=== PATIENT | female | born 1945 | race Caucasian/White ===

== ENCOUNTER 2016-06-18 09:48 | Outpatient (CLI) | payer MEDICARE ==
[~2016-06-18] VITALS: Ht 157.5 cm; Wt 100.7 kg
--- OUTSIDE RECORDS SUMMARY | 2016-06-18 09:52 | XMS REPORT ---
Author Author Kt Roth [facility] Address [address] [place], [place] [id number] Care Team Providers Care Computer Forensic Specialist Name Role Phone Kt Roth PCP Unavailable pharmacy, Meds by Mail Unavailable Unavailable Kt Roth PreferredProvider Unavailable Allergies and Adverse Reactions Name Reaction Notes Lortab heart races Plan of Treatment Not available. Medications Active Name Start Date Estimated Completion Date SIG Comments primidone 250 mg oral tablet take 1 tablet (250 mg) by oral route 3 times per day for maintenance omeprazole 20 mg oral capsule,delayed release(DR/EC) take 1 capsule (20 mg) by oral route once daily before a meal aspirin 81 mg oral tablet,delayed release (DR/EC) take 1 tablet (81 mg) by oral route once daily Advair HFA 500 /50 inhalation take 1 puff bid thiothixene 2 mg oral capsule takes 1 cap bid bupropion HCl 150 mg oral tablet extended release take 1 tablet (150 mg ) by oral route once daily topiramate 50 mg oral tablet take 1 tablet (50 mg) by oral route 2 times per day Farxiga 10 mg oral tablet 09/12/2015 09/06/2016 take 1 tablet by oral route daily for 90 days Levi-fine plus 32G needle 09/12/2015 09/06/2016 use daily. ICD-10 E11.9 cyclobenzaprine 10 mg oral tablet 09/28/2015 take 1 tablet (10 mg) by oral route 2 times per day prn Lantus Solostar 100 unit/mL (3 mL) subcutaneous insulin pen 10/01/20152016 inject 80 units at bedtime for 90 day supply ipratropium bromide 0.02 % inhalation solution 10/09/2015 inhale one vial every 4hr prn for wheezing Proventil HFA 90 mcg/actuation inhalation HFA aerosol inhaler 12/25/2015 2 puffs every 4 hours as needed Humulin 70/30 100 unit/mL (70-30) subcutaneous suspension 12/25/2015 injects 40 units in the AM Victoza 3-Jamal 0.6 mg/0.1 mL (18 mg/3 mL) subcutaneous pen injector 04/11/2016 07/05/2017 inject 1.8 mg by subcutaneous route once daily for 90 days alprazolam 0.5 mg oral tablet 05/28/2016 09/25/2016 take 1 tablet by oral route 3 times a day as needed for 30 days Norvasc 5 mg oral tablet 06/02/2016 07/02/2016 take 1 tablet (5 mg) by oral route once daily for 30 days MS Contin 15 mg oral tablet extended release 06/06/2016 07/06/2016 take 1 tablet (15 mg) by oral route every 12 hours for 30 days methylphenidate 5 mg oral tablet 06/06/2016 07/06/2016 take 1 tablet (5 mg) by oral route 2 times per day for 30 days Name Start Date Expiration Date SIG Comments prednisone 20 mg oral tablet 05/13/2016 05/20/2016 take 1 tablet by oral route daily for 7 days Discontinued Name Start Date Discontinued Date SIG Comments atorvastatin 40 mg oral tablet 06/02/2016 take 1 tablet (40 mg) by oral route once daily Tylenol-Codeine #3 300-30 mg oral tablet 09/06/2015 06/02/2016 take 1 - 2 tablets by oral route every 6 hours as needed Samara Nolasco 300 unit/mL (1.5 mL) subcutaneous insulin pen 09/12/20152015 80 units daily for 90 days oxycodone 15 mg oral tablet 05/27/2016 06/02/2016 take 1 tablet by oral route every 4 hours as needed Problem List Not available. Vital Signs Date Time BP-Sys(mm[Hg] BP-Jayna(mm[Hg]) HR(bpm) RR(rpm) Temp WT HT HC BMI BSA BMI Percentile O2 Sat(%) 06/02/2016 11:03:00 AM 108 mmHg 66 mmHg 96 bpm 18 rpm 96.6 F 63 in 92 % 05/13/2016 9:13:00 AM 140 mmHg 84 mmHg 94 bpm 18 rpm 96.7 F 235 lbs 63 in 41.628 kg/m 2.1767 m 94 % 03/12/2016 10:33:00 AM 110 mmHg 72 mmHg 92 bpm 16 rpm 97.6 F 235 lbs 63 in 41.63 kg/m2 2.18 m2 97 % 01/31/2016 10:40:00 AM 120 mmHg 82 mmHg 95 bpm 18 rpm 97.2 F 238 lbs 63 in 42.1594 kg/m 2.1906 m 98 % 11/27/2015 1:32:00 PM 132 mmHg 80 mmHg 94 bpm 16 rpm 96 F 230 lbs 63 in 40.74 kg/m2 2.15 m2 97 % 09/06/2015 8:33:00 AM 132 mmHg 76 mmHg 97 bpm 20 rpm 97 F 227 lbs 63 in 40.2108 kg/m 2.1394 m 96 % 08/21/2015 9:09:00 AM 136 mmHg 84 mmHg 97 bpm 19 rpm 96.9 F 230 lbs 63 in 40.74 kg/m2 2.15 m2 98 % 08/13/2015 3:13:00 PM 132 mmHg 80 mmHg 92 bpm 16 rpm 97 F 232 lbs 63 in 41.0965 kg/m 2.1628 m 98 % Social History Name Description Comments Tobacco Current every day smoker History of Procedures Date Ordered Description Order Status 08/13/2015 12:00 AM COMPLETE CBC W/AUTO DIFF WBC Reviewed 08/13/2015 12:00 AM COMPREHEN METABOLIC PANEL Reviewed 08/13/2015 12:00 AM GLYCOSYLATED HEMOGLOBIN TEST Reviewed 09/06/2015 12:00 AM X-RAY EXAM OF SHOULDER Reviewed 11/27/2015 12:00 AM COMPLETE CBC W/AUTO DIFF WBC Returned 11/27/2015 12:00 AM COMPREHEN METABOLIC PANEL Returned 11/27/2015 12:00 AM GLYCOSYLATED HEMOGLOBIN TEST Returned 03/12/2016 12:00 AM COMPLETE CBC W/AUTO DIFF WBC Returned 03/12/2016 12:00 AM COMPREHEN METABOLIC PANEL Returned 03/12/2016 12:00 AM GLYCOSYLATED HEMOGLOBIN TEST Returned 03/12/2016 12:00 AM INFLUENZA VACCINE QUADRIVALENT 3 YRS PLUS IM Reviewed Results Summary Data and Description Results 08/13/2015 4:00 PM GLUCOSE 171.0 mg/dLSODIUM 142.0 mmol/LPOTASSIUM 3.90 mmol/ LCHLORIDE 107.0 mmol/LCO2 24.0 mmol/LBUN 7.0 mg/dLCREATININE 0.70 mg/dLSGOT/AST 36.0 IU/LSGPT/ALT 45.0 IU/LALK PHOS 111.0 IU/LTOTAL PROTEIN 7.30 g/dLALBUMIN 4.10 g/dLTOTAL BILI 0.30 mg/dLCALCIUM 9.10 mg/dLAGE 70 GFR NonAA 83 GFR AA 101 eGFR >60 mL/min/1.73meGFR AA* >60 WBC 8.3 RBC 4.78 HGB 14.10 g/dLHCT 41.60 % MCV 87.0 fLMCH 29.50 pgMCHC 33.90 g/dLRDW SD 41 RDW CV 12.90 %MPV 10.40 fLPLT 169 NRBC# 0.00 NRBC% 0.0 %NEUT 52.40 %%LYMP 38.70 %%MONO 6.60 %%EOS 2.0 %%BASO 0.20 %#NEUT 4.36 #LYMP 3.23 #MONO 0.55 #EOS 0.17 #BASO 0.02 MANUAL DIFF NOT IND Hemoglobin A1c 9.50 %Estim. Avg Glu (eAG) 226 11/27/2015 1:52 PM WBC 10.7 RBC 5.12 HGB 15.0 g/dLHCT 44.70 %MCV 87.0 fLMCH 29.30 pgMCHC 33.60 g/dLRDW SD 42 RDW CV 13.20 %MPV 9.80 fLPLT 194 NRBC# 0.00 NRBC% 0.0 %NEUT 52.0 %%LYMP 37.80 %%MONO 7.0 %%EOS 2.60 %%BASO 0.30 %#NEUT 5.58 #LYMP 4.05 #MONO 0.75 #EOS 0.28 #BASO 0.03 MANUAL DIFF NOT IND HGB A1C 6.70 % Est Avg Glucose 145.6 mg/dLGLUCOSE 71.0 mg/dLSODIUM 140.0 mmol/LPOTASSIUM 4.50 mmol/LCHLORIDE 105.0 mmol/LCO2 25.0 mmol/LBUN 15.0 mg/dLCREATININE 0.80 mg/ dLSGOT/AST 37.0 IU/LSGPT/ALT 44.0 IU/LALK PHOS 123.0 IU/LTOTAL PROTEIN 8.20 g/ dLALBUMIN 4.10 g/dLTOTAL BILI 0.30 mg/dLCALCIUM 9.80 mg/dLAGE 70 GFR NonAA 71 GFR AA 86 eGFR >60 mL/min/1.73meGFR AA* >60 03/12/2016 11:36 AM WBC 8.9 RBC 5.08 HGB 14.80 g/dLHCT 44.40 %MCV 87.0 fLMCH 29.10 pgMCHC 33.30 g/dLRDW SD 43 RDW CV 13.30 %MPV 9.90 fLPLT 168 NRBC# 0.00 NRBC% 0.0 %NEUT 51.90 %%LYMP 38.40 %%MONO 6.70 %%EOS 2.50 %%BASO 0.20 %#NEUT 4.61 #LYMP 3.41 #MONO 0.60 #EOS 0.22 #BASO 0.02 MANUAL DIFF NOT IND HGB A1C 7.40 %Est Avg Glucose 165.7 mg/dLGLUCOSE 157.0 mg/dLSODIUM 141.0 mmol/ LPOTASSIUM 4.0 mmol/LCHLORIDE 108.0 mmol/LCO2 25.0 mmol/LBUN 12.0 mg/ dLCREATININE 0.90 mg/dLSGOT/AST 42.0 IU/LSGPT/ALT 48.0 IU/LALK PHOS 123.0 IU/ LTOTAL PROTEIN 7.20 g/dLALBUMIN 4.10 g/dLTOTAL BILI 0.30 mg/dLCALCIUM 9.60 mg/ dLAGE 70 GFR NonAA 62 GFR AA 75 eGFR >60 mL/min/1.73meGFR AA* >60 04/08/2016 6:33 AM GLUCOSE POCT 179.0 mg/dL 06/04/2016 11:00 PM COLOR YELLOW APPEARANCE HAZY SPEC GRAV 1.020 pH 5.5 PROTEIN NEGATIVE GLUCOSE >=1000 mg/dLKETONE NEGATIVE BILIRUBIN NEGATIVE BLOOD TRACE-INTACT NITRITE POSITIVE LEUK SCREEN SMALL MICRO INDICATED? SEE BELOW WBC/ HPF 20-50 RBC/HPF 0-5 CASTS/LPF NEGATIVE /LPFCRYSTALS NEGATIVE MUCOUS THRDS NEGATIVE BACTERIA 2++ EPITH CELLS FEW SQUAMOUS /HPFTRICHOMONAS NEGATIVE YEAST NEGATIVE CULT SET UP? YES History Of Immunizations Name Date Admin Mfg Name Mfg Code Trade Name Lot# Route Inj Vis Given Vis Pub CVX Influenza 03/12/2016 sanofi pasteur PMC Fluzone High-Dose [id number] Intramuscular Left Deltoid 03/12/2016 12/29/2014 141 History of Past Illness Name Date of Onset Comments Chronic Obstructive Pulmonary Disease Tremor, essential Hypertension Insomnia, unspecified Bipolar disorder, unspecified Hyperlipidemia CVA (cerebral vascular accident) Hypertension Aug 13 2015 3:33PM Diabetes Mellitus, Type II Aug 13 2015 3:33PM Chronic Obstructive Pulmonary Disease Aug 13 2015 3:33PM Hypertension Aug 21 2015 9:11AM Diabetes Mellitus, Type II, Uncontrolled Aug 21 2015 9:11AM Subacromial bursitis, right Aug 21 2015 9:31AM Shoulder joint pain Sep 06 2015 8:39AM Diabetes Mellitus, Type II, Uncontrolled Sep 06 2015 8:39AM Diabetes Mellitus, Type II Nov 27 2015 1:35PM Shoulder tendonitis, right Jan 31 2016 10:46AM Anxiety Jan 31 2016 10:46AM Diabetes Mellitus, Type II Mar 12 2016 10:39AM Chronic right shoulder pain Mar 12 2016 10:39AM Skin tags, multiple acquired Mar 12 2016 10:39AM Hypertension Mar 12 2016 10:39AM Pain of right hip joint May 13 2016 9:22AM Severe pain May 13 2016 9:22AM Hypertension Jun 02 2016 11:10AM Spinal stenosis of lumbar region Jun 02 2016 11:10AM Payers Insurance Name Company Name Plan Name Plan Number Policy Number Policy Group Number Start Date Medicare RHC Medicare RHC [id number] N/A [facility] [id number] N/A Medicare Part A Medicare - Lab/Xray [id number] N/A Medicare Part B Medicare Of [place] [id number] N/A Medicare Part A Medicare Part A [id number] N/A History of Encounters Visit Date Visit Type Provider 06/02/2016 Office visit Kt Roth MD 05/13/2016 Office visit Kt Roth MD 04/01/2016 Voided Jon Landin MD 03/12/2016 Office visit Kt Roth MD 01/31/2016 Office visit Kt Roth MD 11/27/2015 Office visit Kt Roth MD 09/06/2015 Office visit Kt Roth MD 08/21/2015 Office visit Kt Roth MD 08/13/2015 Office visit Kt Roth MD
[2016-06-18] MEDS ORDERED: INSU100I10 SQ (11:20)
[2016-06-18] MEDS ORDERED: AMLO5TAB2 PO (11:20)
[2016-06-18] MEDS ORDERED: LIRA0.6P SQ (11:20)
[2016-06-18] MEDS ORDERED: MORP30TA60 PO (11:20)
[2016-06-18] MEDS ORDERED: HUM100VI SQ (11:20)
[2016-06-18] MEDS ORDERED: IBUP-1780 PO (12:13)
[2016-06-18] MEDS ORDERED: DOCU100C37 PO (12:13)
[2016-06-18] MEDS ORDERED: BISA10SU6 RC (12:27)
[2016-06-18] MEDS ORDERED: PRIM250T PO (12:27)
[2016-06-18] MEDS ORDERED: ASPI-586 PO (12:27)
[2016-06-18] MEDS ORDERED: NALO25TA PO (12:27)
[2016-06-18] MEDS ORDERED: CLOT30LO2 TP (12:27)
[2016-06-18] MEDS ORDERED: AMOX-358 PO (12:27)
[2016-06-18] MEDS ORDERED: MAGN400O7 PO (12:27)
[2016-06-18] MEDS ORDERED: LIDO700A6 TP (12:27)
[2016-06-18] MEDS ORDERED: ALB0.5V IH (12:27)
[2016-06-18] MEDS ORDERED: RT-ALBUINH IH (12:27)
[2016-06-18] MEDS ORDERED: OMEP20CA12 PO (12:27)
[2016-06-18] MEDS ORDERED: AMIT25TA9 PO (12:27)
[2016-06-18] MEDS ORDERED: MORP15TA PO (12:27)
[2016-06-18] MEDS ORDERED: TOPI50CA5 PO (12:27)
[2016-06-18] MEDS ORDERED: CYCL10TA9 PO (12:27)
[2016-06-18] MEDS ORDERED: BETH25TA PO (12:27)
[2016-06-18] MEDS ORDERED: BENZ1TAB6 PO (12:27)
[2016-06-18] MEDS ORDERED: BUPR150T7 PO (12:27)
[2016-06-18] MEDS ORDERED: ONDA4TAB10 PO (12:27)
[2016-06-18] MEDS ORDERED: DAPA10TA PO (12:27)
[2016-06-18] MEDS ORDERED: THIO2CAP2 PO (12:27)
[2016-06-18] MEDS ORDERED: ALPR0.5T7 PO (12:27)
[2016-06-18] MEDS ORDERED: METH5TAB86 PO (12:27)
== END 2016-06-18 12:46 ==
LOC: PREOP 09:48
PROVIDERS: ATTEND Orthopaedic Surgery
DX: Z01.818 Encounter for other preprocedural examination (principal); G83.4 Cauda equina syndrome

== ENCOUNTER 2016-06-23 06:09 | Inpatient (IN) | payer MEDICARE, OTHER ==
[~2016-06-23] VITALS: Ht 157.5 cm; Wt 100.7 kg
[~2016-06-23 06:09] MED LIST: ALB0.5V IH; ALPR0.5T7 PO; AMIT25TA9 PO; AMLO5TAB2 PO; AMOX-358 PO; ASPI-586 PO; BENZ1TAB6 PO; BETH25TA PO; BISA10SU6 RC; BUPR150T7 PO; CLOT30LO2 TP; CYCL10TA9 PO; DAPA10TA PO; DOCU100C37 PO; HUM100VI SQ; IBUP-1780 PO; INSU100I10 SQ; LIDO700A6 TP; LIRA0.6P SQ; MAGN400O7 PO; METH5TAB86 PO; MORP15TA PO; MORP30TA60 PO; NALO25TA PO; OMEP20CA12 PO; ONDA4TAB10 PO; PRIM250T PO; RT-ALBUINH IH; THIO2CAP2 PO; TOPI50CA5 PO
[2016-06-23] MEDS ORDERED: DEXMEDETOMIDINE PRE-MIX (OR) 50 ML IV ONE (06:56)
[2016-06-23] MEDS ORDERED: VANCOMYCIN 1000 MG/VIAL ONE (06:58)
[2016-06-23] MEDS ORDERED: BUP/EPI 0.5% 1:200,000 (SENSORCAINE) 30 ML VIAL ONE (07:00)
[2016-06-23] MEDS ORDERED: ceFAZolin 2 GM/NS 50 ML IV ONE (07:00)
[2016-06-23] MEDS ORDERED: MIDAZOLAM 2 MG/2 ML (VERSED) VIAL ONE (07:01)
[2016-06-23] MEDS ORDERED: FAMOTIDINE 20MG/2ML IV (PEPCID) ONE (07:02)
[2016-06-23] MEDS ORDERED: proPOfol 200 MG/20 ML (DIPRIVAN) VIAL IV ONE (07:07)
[2016-06-23] MEDS ORDERED: ONDANSETRON 4 MG/2 ML (SDV) Z0FRAN ONE (07:07)
[2016-06-23] MEDS ORDERED: SUCCINYLCHOLINE INJ 100 MG/5 ML SYR ONE (07:07)
[2016-06-23] MEDS ORDERED: LIDOCAINE PF 2% 10 ML (XYLOCAINE) AMP ONE (07:07)
[2016-06-23] MEDS ORDERED: LACTATED RINGERS 1,000 ML IV ONE ×4 (07:07→10:52)
[2016-06-23] MEDS ORDERED: SEVOFLURANE (ULTANE) 15 ML INHAL SOLN ONE ×8 (07:07→10:52)
[2016-06-23] MEDS ORDERED: fentaNYL INJECTION 100 MCG/2 ML AMP ONE ×3 (07:09→09:06)
[2016-06-23] MEDS: LACTATED RINGERS 1,000 ML IV PRN ×4 (07:11→10:10)
[2016-06-23] MEDS ORDERED: ACETAMINOPHEN 325 MG TABLET/CAPLET (TYLENOL) PO PRN (07:15)
[2016-06-23] MEDS ORDERED: morphine INJ 4 MG/ML 1 ML (VIAL/SYRINGE) IVP PRN (07:15)
[2016-06-23] MEDS ORDERED: BISACODYL 10 MG SUPP (DULCOLAX) PR PRN (07:15)
[2016-06-23] MEDS ORDERED: ONDANSETRON 4 MG/2 ML (SDV) Z0FRAN IV PRN ×2 (07:15→11:00)
[2016-06-23] MEDS ORDERED: BISACODYL 5 MG (DULCOLAX) TABLET PO PRN (07:15)
[2016-06-23] MEDS ORDERED: MIDAZOLAM 2 MG/2 ML (VERSED) VIAL IV ONE (07:15)
[2016-06-23] MEDS ORDERED: MILK OF MAGNESIA 400 MG/5 ML 30 ML UDC PO PRN (07:15)
[2016-06-23] MEDS ORDERED: FAMOTIDINE 20MG/2ML IV (PEPCID) IV ONE (07:15)
--- NOTE | 2016-06-23 07:31 | Progress Note-Pre Operative ---
Pre-Operative Progress Note H&P Reviewed The H&P was reviewed, patient examined and no changes noted. Date H&P Reviewed: Jun 23, 2016 Time H&P Reviewed: 07:30 Pre-Operative Diagnosis: fracture and stenosis KATINA RICO DO Jun 23, 2016 07:31
[2016-06-23 07:42] VITALS: BP 130/69
[2016-06-23] MEDS ORDERED: BACITRACIN 100,000 UNIT/NS 1000 ML POUR BOTTLE IR ONE ×2 (08:00)
[2016-06-23] MEDS: FAMOTIDINE 20 MG (PEPCID) TABLET PO SCH ×2 (09:00→20:31)
[2016-06-23] MEDS: DOCUSATE SODIUM 100 MG (COLACE) CAP PO SCH ×2 (09:00→20:31)
[2016-06-23] MEDS: SENNOSIDES 8.6 MG (SENOKOT) TAB PO SCH ×2 (09:00→20:31)
--- NOTE | 2016-06-23 10:36 | Diagnostic Imaging Report ---
INDICATION: Followup low back pain. DISCUSSION: Fluoroscopic support was provided during intraoperative posterior decompression and stabilization of the lumbar spine. Please see the operative report for full detail. Fluoroscopy time: 50 seconds. IMPRESSION: Intraoperative lumbar spine. Dictated by: Dictated on workstation # [id number]
[2016-06-23] MEDS ORDERED: HYDROmorphone (DILAUDID) 2 MG/ML VIAL IV PRN (11:00)
[2016-06-23] MEDS ORDERED: morphine INJ 10 MG/ML 1ML (SYR OR VIAL) IV PRN (11:00)
[2016-06-23] MEDS ORDERED: MEPERIDINE (DEMEROL) INJ 50 MG/ML IV PRN (11:00)
[2016-06-23] MEDS ORDERED: PROMETHAZINE INJ 25 MG/ML (PHENERGAN) AMP IV PRN (11:00)
--- NOTE | 2016-06-23 11:55 | OPERATIVE REPORT ---
PROCEDURE PHYSICIAN: KATINA RICO DATE OF PROCEDURE: 06/23/2016 SURGEON: Dr. Dom D.O. AUGER OPERATOR: HARRIET Middleton. This is a medically necessary procedure and bindery assistant is necessary for retraction of vital neurovascular structures. Without an bindery assistant, the procedure would not be possible. PREOPERATIVE DIAGNOSIS: 1. Cauda equina syndrome. 2. Lumbar spinal stenosis (central, connective tissue, bony) POSTOPERATIVE DIAGNOSIS: 1. Cauda equina syndrome. 2. Lumbar spinal stenosis (central, connective tissue, bony) PROCEDURE PERFORMED: 1. L3-4 kyphoplasty. 2. L3-4 bilateral laminectomies complete facetectomies and foraminotomies. 3. Transforaminal lumbar interbody fusion L3-4. 4. Application of peek cage L3-4. 5. Posterior spinal fusion L3-4. 6. Application of posterior instrumentation L3-4. 7. Use of human allograft and bone morphogenic protein. 8. Use of local bone autograft. COMPLICATIONS: None. SPECIMENS SENT: None. DRAIN PLACED: Subfascial Hemovac. ANESTHESIA: General endotracheal tube anesthesia with local anesthetic. ESTIMATED BLOOD LOSS: 1400 mL. HISTORY OF PRESENT ILLNESS: Ms. Segura is a very pleasant, obese 71-year-old female who up to 5 weeks ago was fully ambulatory. She was able to walk around town and perform activities of daily living. She did have a fall and a week after that fall had rapid decline in her neurologic functions. She was unable to stand and walk due to significant bilateral lower extremity weakness, saddle anesthesia and she had a neurogenic bladder with urinary incontinence. She presented to me in the clinic for evaluation for this problem. Diagnosis: cauda equinus syndrome after MRI demonstrated severe L3-4 spinal stenosis above a fused L4-5, L5-S1. She understood the risks and benefits of surgery, as well as the necessity to prevent further neurologic decline, and she did wish to proceed. OPERATION: The patient was identified by name on wrist band in the preoperative holding area. Her operative site was signed, consent was signed. SCDs were placed. Neural monitor was hooked up and antibiotics were started. She was taken to the operating room theater, placed under general endotracheal tube anesthesia and transferred to the operating room table in the prone position. All bony prominences were well padded. She was prepped and draped in the usual sterile fashion. Lateral x-ray was brought into place. I marked out the extent of my incision, infiltrated the skin and soft tissue with 0.5% Marcaine with epinephrine. I made a midline lumbar incision over the old scar and just proximal to it. I proceeded with a bilateral subperiosteal paraspinal muscular approach exposing the posterior elements at L3-4. At this point, I performed a bilateral laminectomy at L3-4. I utilized Leksell rongeurs, high speed bur and Kerrison rongeurs to do this. I performed a complete facetectomies completely removing the L3-4 facet joint. I identified the exiting nerve root. When I was finished, the nerves were thoroughly decompressed. At this point, I retracted the thecal sac medially, identified a large broad based disc bulge. I did an annulotomy and I did a complete discectomy of the entire L3-4 disc space. I then sized and chose the appropriate new NuVasive titanium interbody cage packed with human allograft and I seated it in the midline position. At this point, I made all my screw holes at L3 and L4. I mixed up Kyphon kyphoplasty cement and I performed an L3 kyphoplasty through those pedicle holes that were prepared. After the cement was in place I placed screws bilaterally in L3 and then I placed screws in L4 bilaterally. I asked EMG neural monitoring to assess the presence of my screws and they were in safe position. I also looked at them under AP and lateral x-ray the screws were in good position. At this point, I removed the x-ray. I placed a rai on the left and rai on the right, I placed set screws, I final tightened those set screws. I then thoroughly irrigated the wound with 2 liters of antibiotic enhanced irrigation and decorticated the remaining posterior bony elements. I placed bone morphogenic protein-soaked collagen strips in the left and the right posterolateral gutters to promote posterior spinal fusion. I also packed human allograft and local bone autograft and human stem cells in those lateral gutters to promote posterior spinal fusion. At this point, I placed a deep subfascial Hemovac drain, I sewed into place and I closed the wound in my usual layered fashion utilizing 0 Vicryl, followed by 2-0 Vicryl, followed by 1 gram of vancomycin powder caressed through the soft tissues and I closed the skin with nathan. I applied dressings and took the patient in the supine position to PACU where she awoke without incident. She tolerated the procedure well. PLAN: The plan at this time - we will admit the patient for IV antibiotics, IV pain control and postop, monitoring. Discontinue her drain and Wyman per my protocol. We will assess her hemoglobin on a daily basis and transfuse should she need it. She does have a brace to wear when she is out of bed. Please note neural monitoring utilized SSEPs, EMGs train of fours. This was stable throughout the procedure also note instrumentation utilized was NuVasive for everything. Job ID: [id number] Dictated Date: 06/23/2016 10:25:32 Renal Dialysis Rn Date: 06/23/2016 11:27:22 / helen
[2016-06-23 12:00] VITALS: BP 136/62
[2016-06-23] MEDS ORDERED: diphenhydrAMINE 25 MG TAB (BENADRYL) PO PRN (12:00)
[2016-06-23] MEDS: oxyCODONE/APAP 5/325MG (PERCOCET 5) TABLET PO PRN ×2 (13:27→22:59)
[2016-06-23] MEDS: NS IV 1000 ML 1,000 ML IV SCH (13:27)
[2016-06-23] MEDS: ceFAZolin INJECTION 1,000 MG in NS (IVPB) 50 ML IV SCH ×2 (13:32→19:47)
[2016-06-23] MEDS ORDERED: CATHETER FLUSH 10 ML SYR IV PRN (14:45)
[2016-06-23] MEDS ORDERED: NA P133E22 RC (16:22)
[2016-06-23 16:32] VITALS: BP 130/76
[2016-06-23 19:08] VITALS: BP 140/79
[2016-06-23] MEDS: CYCLOBENZAPRINE 10 MG (FLEXERIL) TAB PO PRN (20:32)
[2016-06-24] VITALS: BP 152/90
[2016-06-24] MEDS: NS IV 1000 ML 1,000 ML IV SCH (03:01)
[2016-06-24] MEDS: ceFAZolin INJECTION 1,000 MG in NS (IVPB) 50 ML IV SCH (03:05)
[2016-06-24 04:00] VITALS: BP 153/86
[2016-06-24 05:44] LABS: ALANINE AMINOTRANSFERASE 18 U/L (0-55); ALBUMIN 2.8 G/DL (3.2-4.5); ANION GAP 10 MMOL/L (5-14); ASPARTATE AMINO TRANSFERASE 19 U/L (5-34); BILIRUBIN,TOTAL 0.4 MG/DL (0.1-1.0); BLOOD UREA NITROGEN 8 MG/DL (7-18); BUN/CREATININE RATIO 14; CALCIUM 8.1 MG/DL (8.5-10.1); CARBON DIOXIDE 23 MMOL/L (21-32); CHLORIDE 107 MMOL/L (98-107); CREATININE SERUM 0.57 MG/DL (0.60-1.30); GFR ESTIMATED > 60; GLUCOSE 160 MG/DL (70-105); POTASSIUM 3.4 MMOL/L (3.6-5.0); SODIUM 140 MMOL/L (135-145); TOTAL PROTEIN 5.7 G/DL (6.4-8.2)
[2016-06-24] MEDS: MULTIVIT W/MINERALS TAB (THERAGRAN M) PO SCH (06:10)
[2016-06-24] MEDS: oxyCODONE/APAP 5/325MG (PERCOCET 5) TABLET PO PRN ×4 (06:11→21:44)
[2016-06-24] MEDS ORDERED: RT-ALBUTEROL SULF 2.5 MG/3 ML PRE-MIX VIAL INH PRN (07:15)
[2016-06-24 07:56] LABS: BASOPHILS % (AUTO) 0 % (0-10); EOSINOPHILS # (AUTO) 0.1 10^3/uL (0.0-0.3); EOSINOPHILS % (AUTO) 1 % (0-10); LYMPHOCYTES # (AUTO) 2.2 X 10^3 (1.0-4.0); LYMPHOCYTES % (AUTO) 21 % (12-44); MEAN CORPUSCULAR HEMOGLOBIN 30 PG (25-34); MEAN CORPUSCULAR HGB CONC 33 G/DL (32-36); MEAN CORPUSCULAR VOLUME 91 FL (80-99); MONOCYTES % (AUTO) 9 % (0-12); NEUTROPHILS # (AUTO) 7.2 X 10^3 (1.8-7.8); NEUTROPHILS % (AUTO) 69 % (42-75); PLATELET COUNT 264 10^3/uL (130-400); RED BLOOD COUNT 3.55 10^6/uL (4.35-5.85); RED CELL DISTRIBUTION WIDTH 13.7 % (10.0-14.5); WHITE BLOOD COUNT 10.5 10^3/uL (4.3-11.0)
[2016-06-24 08:00] VITALS: BP 162/88
[2016-06-24] MEDS: morphine ER 30 MG (MS CONTIN) TAB PO SCH ×2 (08:00→19:00)
[2016-06-24] MEDS: ALPRAZolam 0.5 MG (XANAX) TAB PO SCH ×3 (08:46→20:17)
[2016-06-24] MEDS: SENNOSIDES 8.6 MG (SENOKOT) TAB PO SCH ×2 (09:50→20:17)
[2016-06-24] MEDS: buPROPion SR 150 MG (WELLBUTRIN SR) TAB PO SCH ×2 (10:01→20:17)
[2016-06-24] MEDS: BENZTROPINE MESYLATE 1 MG (COGENTIN) TAB PO SCH (10:02)
[2016-06-24] MEDS: BETHANECHOL 25 MG (URECHOLINE) TAB PO SCH ×3 (10:02→18:39)
[2016-06-24] MEDS: CYCLOBENZAPRINE 10 MG (FLEXERIL) TAB PO SCH ×2 (10:03→20:17)
[2016-06-24] MEDS: FAMOTIDINE 20 MG (PEPCID) TABLET PO SCH ×2 (10:03→20:17)
[2016-06-24] MEDS: DOCUSATE SODIUM 100 MG (COLACE) CAP PO SCH ×2 (10:03→20:17)
[2016-06-24] MEDS: amLODIPine 5 MG (NORVASC) TAB PO SCH (10:03)
[2016-06-24] MEDS: inSUlin NPH/REG (NovoLIN 70/30) CHARGE PER UNIT SQ SCH (10:04)
--- NOTE | 2016-06-24 10:24 | Physical Therapy Progress Note ---
Therapy Progress Note Patient is very emotional/tearful and declined PT x 2 this a.m. PT educated patient on importance of mobility to improve strength and to prevent DVT's and pneumonia. Patient continues to be emotional and decline. PT will continue to attempt. 1 ref x 2 JAE SILVA PT Jun 24, 2016 10:23
[2016-06-24 12:00] VITALS: BP 131/80
--- NOTE | 2016-06-24 12:41 | Anesthesia-General Post-Op ---
General Patient Condition Mental Status/LOC: Same as Preop Cardiovascular: Satisfactory Nausea/Vomiting: Absent Respiratory: Satisfactory Pain: Controlled Complications: Absent Post Op Complications Complications None Follow Up Care/Instructions Patient Instructions None needed. Anesthesia/Patient Condition Patient Condition Patient is doing well, no complaints, stable vital signs, no apparent adverse anesthesia problems. No complications reported per nursing. TOMMIE EWING CRNA Jun 24, 2016 12:41
--- NOTE | 2016-06-24 13:08 | Physical Therapy Evaluation ---
PT Evaluation-General Medical Diagnosis Admission Date Jun 23, 2016 at 06:09 Medical Diagnosis: lumbar spinal stenosis Onset Date: Jun 23, 2016 Therapy Diagnosis Therapy Diagnosis: debility/weakness Height/Weight Height (Feet): 5 Height (Inches): 2.00 Weight (Pounds): 222 Weight (Ounces): 0.0 Precautions Precautions/Isolations: Fall Prevention, Standard Precautions Weight Bear Status Weight Bearing Restriction: Weight Bearing/Tolerated Location Restriction: LE Bilateral Referral Physician: Dom Reason for Referral: Evaluation/Treatment Medical History Pertinent Medical History: COPD, DM Additional Medical History bipolar; morbid obesity Current History ~ 5 wks prior, patient c/o back pain; increasingly became worse resulting in cauda equina syndrome ~2- 4 wks ago, patient fell and fractured right humerus 2 wks after rotator cuff repair Reviewed History: Yes Social History Home: Care Home (shira lift transfers) Prior/Core FIM Prior Level of Function Functional Ritchie Measure 0=Not Assessed/NA 4=Minimal Assistance 1=Total Assistance 5=Supervision or Setup 2=Maximal Assistance 6=Modified Ritchie 3=Moderate Assistance 7=Complete Ritchie Bed Mobility: 1 Transfers (B,C,W/C) (FIM): 1 Patient required Shira Lift for safe transfers due to cauda equina syndrome PT Evaluation-Current Subjective Patient is very tearful and fearful to attempt to stand. Agrees to PT. Pain Numeric Pain Scale: 5-Moderate Pain Location: Lower Location Body Site: Back Pain Description: Ache Objective Patient Orientation: Person, Time, Situation Problem Solving: Fair Attachments: Oxygen, Drains, Wyman Catheter, IV ROM/Strength ROM Lower Extremities bilateral LE WFL Strenght Lower Extremities left LE 2-/5 knee flexion/extension; 1+/5 ankle dorsi/plantarflexion right LE 3-/5 knee flexion/extension; 3-/5 ankle dorsi/plantarflexion Integumentary/Posture Integumentary refer to nursing notes Bladder Incontinence: Wyman Cath Posture retropulsive in sit and stand; posture appears WFL Neuromuscular (Tone, Coordination, Reflexes) severely diminished coordination bilateral LE due to cauda equina and inactivity Sensory Vision: Wears Glasses Hearing: Functional Sensation Right Lower Extremit: Impaired Sensation Left Lower Extremity: Impaired Transfers Functional Ritchie Measure 0=Not Assessed/NA 4=Minimal Assistance 1=Total Assistance 5=Supervision or Setup 2=Maximal Assistance 6=Modified Ritchie 3=Moderate Assistance 7=Complete Ritchie Transfers (B, C, W/C) (FIM): 1 Scootin Rollin Supine to/from Sit: 1 Sit to/from Stand: 1 bed t/f WC(FIM only if WC use): 1 dependent assist x 3 with sit to stand and SPT with patient demonstrating severe retropulsion Gait Mode of Locomotion: Wheelchair Anticipated Mode of Locomotion: Wheelchair Wheelchair Training Wheelchair (FIM): 0 Balance Sitting Static: Poor Sitting Dynamic: Poor Standing Static: Poor Standing Dynamic: Poor Assessment/Needs 71 y.o., female, will benefit from skilled PT to address functional strength and mobility to improve current LOF. From a PT standpoint, patient will require extended care facility stay to improve current LOF and to possibly return to home at modified independent LOF. Rehab Potential: Fair Post Rehab Potential-Barriers: morbid obesity/inactivity PLOF PT Surgeon Chief Goals Mcfp Goals PT Surgeon Chief Goals Time Frame: Jul 08, 2016 Transfers (B,C,W/C) (FIM): 2 PT Plan Problem List Problem List: Activity Tolerance, Functional Strength, Safety, Balance, Gait, Transfer, Bed Mobility Treatment/Plan Treatment Plan: Continue Plan of Care Treatment Plan: Bed Mobility, Education, Functional Activity Michael, Functional Strength, Gait, Safety, Therapeutic Exercise, Transfers Treatment Duration: Jul 08, 2016 # of days/week 5-6 Visits Per Week: 10-11 Pt/Family Agrees w/Plan: Yes Safety Risks/Education Patient Education: Transfer Techniques, Safety Issues Teaching Recipient: Patient Teaching Methods: Demonstration, Discussion Response to Teaching: Verbalize Understanding, Reinforcement Needed Discharge Recommendations Therapy D/C Recommendations: Correction (TCU/NH) Time/GCodes Time In: 1131 Time Out: 1146 Total Billed Treatment Time: 15 [facility] Jun 24, 2016 13:07
--- NOTE | 2016-06-24 14:36 | Diagnostic Imaging Report ---
EXAMINATION: Two views of the lumbar spine. INDICATION: Post laminectomy at L3/4 and kyphoplasty at the L3. FINDINGS: There is anterior and posterior fusion performed at L3/4 with cementoplasty at the L3 vertebral body. The alignment of the posterior spinal line is not well evaluated on the lateral view without obvious alignment de-arrangement. There are small transpedicular screws also seen at the L5 and S1 levels. Posterior drain is seen. IMPRESSION: Limited evaluation demonstrating post-fusion changes and L3 kyphoplasty as described. Dictated by: Dictated on workstation # [id number]
[2016-06-24 16:00] VITALS: BP 155/88
--- NOTE | 2016-06-24 17:04 | Progress Note (SOAP) ---
Subjective Subjective/Events-last exam Elke is POD #1 s/p L3-4 laminectomy and TLIF with PSIF and L3 kyphoplasty. She has no leg pain today and her back pain is mild. Her c/c is anxiety. She takes xanax regularly and hasn't had this since surgery. She denies any other or new issues today. Prior to surgery she was wheelchair bound for several weeks. She has been inactive and has developed LE atrophy and weakness. Review of Systems General: No Chills, No Night Sweats HEENT: No Head Aches, No Visual Changes Pulmonary: No Dyspnea, No Cough Cardiovascular: No: Chest Pain, Palpitations Gastrointestinal: No: Nausea, Vomiting Musculoskeletal: : back pain Neurological: No: Numbness, Weakness Objective Exam Vital Signs Date Time Temp Pulse Resp B/P Pulse Ox O2 Delivery O2 Flow Rate FiO2 06/24/16 12:00 97.1 99 20 131/80 95 Nasal Cannula 3.00 06/24/16 08:00 96.0 100 18 162/88 98 Nasal Cannula 3.00 06/24/16 07:22 3.00 06/24/16 04:00 97.9 104 20 153/86 99 Nasal Cannula 3.00 06/24/16 00:00 97.8 107 20 152/90 94 Nasal Cannula 3.00 06/23/16 20:00 Room Air 06/23/16 19:08 96.1 104 20 140/79 98 Nasal Cannula 3.00 I & O 06/24/16 07:00 Intake Total 4225 ml Output Total 5610 ml Balance -1385 ml Capillary Refill : Less Than 3 Seconds General Appearance: Anxious Neck: Normal Inspection Respiratory: Normal Breath Sounds No Accessory Muscle Use No Respiratory Distress Cardiovascular: Regular Rate, Rhythm Normal Peripheral Pulses Peripheral Pulses: 2+ Dorsalis Pedis (R), 2+ Left Dors-Pedis (L), 2+ Radial Pulses (R), 2+ Radial Pulses (L) Extremity: Normal Capillary Refill Normal Inspection Normal Range of Motion Non Tender No Calf Tenderness Neurologic/Psychiatric: Alert Oriented x3 Other (bilateral LE weakness. While laying in bed patient is able to flex hips 4/5 bilateral illiopsoas, extend leg at knee 4/5 bilateral quad, dorsiflex bialteral feet 3/5 ) Skin: Normal Color Warm/Dry Lymphatic: No Adenopathy Results Lab Laboratory Tests 06/24/16 04:40: Alanine Aminotransferase (ALT/SGPT) 18, Albumin 2.8L, Alkaline Phosphatase 190H , Anion Gap 10, Aspartate Amino Transf (AST/SGOT) 19, BUN/Creatinine Ratio 14, Basophils # (Auto) 0.0, Basophils (%) (Auto) 0, Blood Urea Nitrogen 8, Calcium Level 8.1L, Carbon Dioxide Level 23, Chloride Level 107, Creatinine 0.57L, Eosinophils # (Auto) 0.1, Eosinophils (%) (Auto) 1, Estimat Glomerular Filtration Rate > 60, Glucose Level 160H, Hematocrit 32L, Hemoglobin 10.5L, Lymphocytes # (Auto) 2.2, Lymphocytes (%) (Auto) 21, Mean Corpuscular Hemoglobin 30, Mean Corpuscular Hemoglobin Concent 33, Mean Corpuscular Volume 91, Mean Platelet Volume 11.0H, Monocytes # (Auto) 1.0, Monocytes (%) (Auto) 9, Neutrophils # (Auto) 7.2, Neutrophils (%) (Auto) 69, Platelet Count 264, Potassium Level 3.4L, Red Blood Count 3.55L, Red Cell Distribution Width 13.7, Sodium Level 140, Total Bilirubin 0.4, Total Protein 5.7L, White Blood Count 10.5 06/24/16 07:59: Glucometer 181H Microbiology 06/23/16 MRSA Screen - Final, Complete Assessment/Plan Assessment/Plan Assess & Plan/Chief Complaint Plan: POD #1 s/p lumbar decompression and fusion, kyphoplasty right humerus fracture ABL anemia Diabetes COPD Bipolar disorder hypokalemia Plan: PT Back brace when OOB RUE in sling monitor labs continue drain Calf scd for DVT prophylaxis IS medications reconciled, will try Percocet for analgesia and IV morphine for pain control for now plan will be to dismiss back to LTC facility for conitnued PT, gait training, and LE strengthening Diagnosis/Problems: Clinical Quality Measures DVT/VTE Risk/Contraindication: Risk Factor Score Per Nursin RFS Level Per Nursing on Admit: 4+=Very High RITO CONDE Jun 24, 2016 17:04
[2016-06-24] MEDS ORDERED: NS IV 1000 ML 0 ML ONE (18:32)
[2016-06-24] MEDS: AMITRIPTYLINE 50 MG (ELAVIL) TAB PO SCH (20:17)
[2016-06-24 20:21] VITALS: BP 156/81
[2016-06-25] VITALS: BP 173/86
[2016-06-25 04:00] VITALS: BP 161/82
--- NOTE | 2016-06-25 06:09 | Progress Note (SOAP) ---
Subjective Subjective/Events-last exam MELDIA. Doing well. Seems depressed. Was up and OOB with assist per nurse. She denies new leg pain. Denies N/V/CP/SOB. Drain is in place Objective Exam Vital Signs Date Time Temp Pulse Resp B/P Pulse Ox O2 Delivery O2 Flow Rate FiO2 06/25/16 00:00 98.2 96 20 173/86 96 Nasal Cannula 3.00 06/24/16 20:21 97.7 100 20 156/81 93 Nasal Cannula 3.00 06/24/16 20:00 96 Room Air 06/24/16 16:00 98.5 98 20 155/88 95 Nasal Cannula 3.00 06/24/16 12:00 97.1 99 20 131/80 95 Nasal Cannula 3.00 06/24/16 08:45 95 Nasal Cannula 3.00 06/24/16 08:00 96.0 100 18 162/88 98 Nasal Cannula 3.00 06/24/16 07:22 3.00 I & O 06/25/16 07:00 Intake Total 1030 ml Output Total 2245 ml Balance -1215 ml Capillary Refill : Less Than 3 Seconds General Appearance: No Apparent Distress Extremity: Other (neuro stable, cindy LE general weakness, incision clean and dry, drain in place) Results Lab Laboratory Tests 06/24/16 07:59: Glucometer 181H 06/24/16 21:38: Glucometer 185H 06/25/16 05:44: Glucometer 180H Microbiology 06/23/16 MRSA Screen - Final, Complete Assessment/Plan Assessment/Plan Assess & Plan/Chief Complaint ASSESSMENT: s/p L3-4 laminectomy, L3 kypho, PSIF PLAN: SNF planning consult child protective services social worker for dc planning consult dr ulrich with medicine for evaluation ok to d/c when arranged DVT prophy: Calf SCDs d/c drain o/p when <60 cc Diagnosis/Problems: Clinical Quality Measures DVT/VTE Risk/Contraindication: Risk Factor Score Per Nursin RFS Level Per Nursing on Admit: 4+=Very High KATINA RICO DO Jun 25, 2016 06:09
[2016-06-25] MEDS: oxyCODONE/APAP 5/325MG (PERCOCET 5) TABLET PO PRN ×4 (06:25→18:21)
[2016-06-25] MEDS: BETHANECHOL 25 MG (URECHOLINE) TAB PO SCH ×3 (06:25→16:00)
[2016-06-25] MEDS: MULTIVIT W/MINERALS TAB (THERAGRAN M) PO SCH (06:25)
[2016-06-25] MEDS: morphine ER 30 MG (MS CONTIN) TAB PO SCH ×2 (06:28→19:00)
[2016-06-25 08:00] VITALS: BP 154/84
[2016-06-25] MEDS: CYCLOBENZAPRINE 10 MG (FLEXERIL) TAB PO SCH ×2 (09:21→20:25)
[2016-06-25] MEDS: buPROPion SR 150 MG (WELLBUTRIN SR) TAB PO SCH ×2 (09:21→20:25)
[2016-06-25] MEDS: amLODIPine 5 MG (NORVASC) TAB PO SCH (09:22)
[2016-06-25] MEDS: FAMOTIDINE 20 MG (PEPCID) TABLET PO SCH ×2 (09:22→20:25)
[2016-06-25] MEDS: ALPRAZolam 0.5 MG (XANAX) TAB PO SCH ×3 (09:22→20:25)
[2016-06-25] MEDS: BENZTROPINE MESYLATE 1 MG (COGENTIN) TAB PO SCH (09:25)
[2016-06-25] MEDS: inSUlin NPH/REG (NovoLIN 70/30) CHARGE PER UNIT SQ SCH (09:26)
[2016-06-25 09:29] LABS: BASOPHILS % (AUTO) 0 % (0-10); EOSINOPHILS # (AUTO) 0.1 10^3/uL (0.0-0.3); EOSINOPHILS % (AUTO) 1 % (0-10); LYMPHOCYTES # (AUTO) 3.3 X 10^3 (1.0-4.0); LYMPHOCYTES % (AUTO) 26 % (12-44); MEAN CORPUSCULAR HEMOGLOBIN 30 PG (25-34); MEAN CORPUSCULAR HGB CONC 33 G/DL (32-36); MEAN CORPUSCULAR VOLUME 89 FL (80-99); MONOCYTES # (AUTO) 1.1 X 10^3 (0.0-1.0); MONOCYTES % (AUTO) 9 % (0-12); NEUTROPHILS # (AUTO) 8.3 X 10^3 (1.8-7.8); NEUTROPHILS % (AUTO) 65 % (42-75); PLATELET COUNT 302 10^3/uL (130-400); RED BLOOD COUNT 3.82 10^6/uL (4.35-5.85); RED CELL DISTRIBUTION WIDTH 13.4 % (10.0-14.5); WHITE BLOOD COUNT 12.7 10^3/uL (4.3-11.0)
[2016-06-25] MEDS: SENNOSIDES 8.6 MG (SENOKOT) TAB PO SCH ×2 (09:45→20:25)
[2016-06-25 09:56] LABS: ALANINE AMINOTRANSFERASE 18 U/L (0-55); ANION GAP 12 MMOL/L (5-14); ASPARTATE AMINO TRANSFERASE 18 U/L (5-34); BILIRUBIN,TOTAL 0.5 MG/DL (0.1-1.0); BLOOD UREA NITROGEN 5 MG/DL (7-18); BUN/CREATININE RATIO 9; CALCIUM 8.7 MG/DL (8.5-10.1); CARBON DIOXIDE 22 MMOL/L (21-32); CHLORIDE 103 MMOL/L (98-107); CREATININE SERUM 0.54 MG/DL (0.60-1.30); GFR ESTIMATED > 60; GLUCOSE 163 MG/DL (70-105); POTASSIUM 3.3 MMOL/L (3.6-5.0); SODIUM 137 MMOL/L (135-145); TOTAL PROTEIN 6.3 G/DL (6.4-8.2)
[2016-06-25] MEDS: DOCUSATE SODIUM 100 MG (COLACE) CAP PO SCH ×2 (09:59→20:25)
[2016-06-25] MEDS: RT-ALBUTEROL/IPRATROPIUM 3 ML (DUONEB) VIAL INH SCH ×3 (10:09→18:55)
--- NOTE | 2016-06-25 10:42 | Consultation-Hospitalist ---
HPI History of Present Illness: HPI/Chief Complaint CC: Medical management following extensive lumbar surgery due to cauda equina syndrome acute HPI: This is [id number] pt that was admitted on 06/23/16 following extensive lumbar spine surgery and kyphoplasty by Dr. Fernandes. Fairly extensive EBL of 1400 ccs but Hgb stable. She has hx of COPD, DM, Bipolar. Currently pt is becoming very depressed since came from prison in [place] and even refused PT yesterday. SW Review: SW discussed moving to in-pt rehab with pt, and pt was very hesitant. SW will contact previous skilled facility in order to prepare all possible options. Patient Interview: Pt has been receiving breathing treatments. Pt has been in a prison. Physical exam was stable. Pt states that she is having BMs. Pt has not yet urinated after catheter DC. Pt feels fatigued and stressed. Dr. Roth is PCP. Dr. Amado discusses in-patient rehab with pt and family. Pt is willing to attempt rehab. Scribed by Tobias Urrutia under the direct supervision of Dr. Amado. Source: patient Date Seen 06/25/16 Attending Physician Bertrand Fernandes DO PCP Referring Physician Date of Admission Jun 23, 2016 at 06:09 Home Medications & Allergies Home Medications Reviewed patient Home Medication Reconciliation Form Allergies Coded Allergies: niacin (Verified Allergy, Mild, RASH, 06/23/16) Past Wbpwosa-Myikdc-Dbcvpa Hx Patient Social History Marrital Status: single Employed/Student: retired Alcohol Use: Denies Use Recreational Drug Use: No Smoking Status: Former Smoker Physical Abuse Screen: No Sexual Abuse: No Recent Foreign Travel: No Contact w/other who traveled: No Recent Hopitalizations: Yes Recent Infectious Disease Expo: No Immunizations Up To Date Date of Pneumonia Vaccine: Feb 23, 2016 Date of Influenza Vaccine: Feb 23, 2016 Seasonal Allergies Seasonal Allergies: No Surgeries HX Surgeries: Yes Surgeries: Orthopedic Respiratory Hx Respiratory Disorders: Yes Respiratory Disorders: Asthma, COPD Cardiovascular Hx Cardiovascular Disorders: Yes Cardiac Disorders: High Cholesterol, Hypertension Neurological Hx Neurological Disorders: Yes Neurological Disorders: Headaches /Migraines, Neuropathy Genitourinary Hx Genitourinary Disorders: Yes Genitourinary Disorders: Bladder Infection Gastrointestinal Hx Gastrointestinal Disorders: Yes Gastrointestinal Disorders: Chronic Constipation Musculoskeletal Hx Musculoskeletal Disorders: Yes Musculoskeletal Disorders: Arthritis, Back Injury, Chronic Back Pain Endocrine Hx Endocrine Disorders: Yes Endocrine Disorders: Diabetes, Insulin dep HEENT HX ENT Disorders: No Cancer Hx Cancer: No Psychosocial Hx Psychiatric Problems: Yes Behavioral Health Disorders: Anxiety, Bipolar, Depression Integumentary HX Skin/Integumentary Disorder: No Reviewed Nursing Assessment Reviewed/Agree w Nursing PMH: Yes Family Medical History Family Hx: Arthritis G8 BROTHER Colon cancer 19 FATHER Psychosocial problem 19 MOTHER Review of Systems Constitutional: see HPI dizziness malaise weakness EENTM: no symptoms reported see HPI Respiratory: no symptoms reported see HPI Cardiovascular: no symptoms reported see HPI Gastrointestinal: no symptoms reported see HPI Genitourinary: no symptoms reported see HPI Musculoskeletal: see HPI back pain Skin: no symptoms reported see HPI Psychiatric/Neurological: See HPI Anxiety Depressed All Other Systems Reviewed Negative Unless Noted: Yes Physical Exam Physical Exam Vital Signs Vital Sign - Last 12Hours 06/23/16 06/23/16 07:38 07:42 Temp 96.5 Pulse 94 Resp 18 B/P 130/69 Pulse Ox 94 O2 Delivery Nasal Cannula O2 Flow Rate 2.00 Capillary Refill : Less Than 3 Seconds General Appearance: No Apparent Distress WD/WN Chronically ill Obese Eyes: Bilateral Eye Normal Inspection, Bilateral Eye PERRL HEENT: PERRL/EOMI Normal ENT Inspection Pharynx Normal Neck: Full Range of Motion Normal Inspection Non Tender Supple Carotid Bruit Respiratory: Chest Non Tender No Accessory Muscle Use No Respiratory Distress Decreased Breath Sounds Cardiovascular: Regular Rate, Rhythm No Edema No Gallop No JVD No Murmur Normal Peripheral Pulses Gastrointestinal: Normal Bowel Sounds No Organomegaly No Pulsatile Mass Non Tender Soft Back: Normal Inspection No CVA Tenderness No Vertebral Tenderness Extremity: Normal Capillary Refill Normal Inspection Normal Range of Motion Non Tender No Calf Tenderness No Pedal Edema Neurologic/Psychiatric: Alert Oriented x3 No Motor/Sensory Deficits Depressed Affect Skin: Normal Color Warm/Dry Lymphatic: No Adenopathy Results Results/Procedures Lab Laboratory Tests 06/23/16 11:22 06/24/16 04:40 06/25/16 09:20 Assessment/Plan Admission Diagnosis Assessment: S/p extensive lumbar spine surgery due to cauda equina syndrome acute Severe debility Situational depression severe Bipolar Hypokalemia HTN COPD Assessment and Plan Plan: In-patient rehab mikeal NADIRA will contact skilled facility in case pt declines in-pt rehab Replace potassium Maintain insulin for hyperglycemia Prognosis poor considering her severe debility and emotional labile state causing difficulty and motivation Clinical Quality Measures DVT/VTE Risk/Contraindication: Risk Factor Score Per Nursin RFS Level Per Nursing on Admit: 4+=Very High BRITTNEE AMADO DO Jun 25, 2016 10:42
--- NOTE | 2016-06-25 11:37 | Physical Therapy Daily Note ---
PT Daily Note-Current Subjective First attempt- Pt was eating breakfast. PT returned to check on pt and pt was just getting off [facility]SC from . Pt agreed to PT. Pain Location: Right Location Body Site: Arm Pain Description: Ache Comment: Pt reported pain in R arm with movement although Dr upgraded to WBAT w/arm. Mental Status Patient Orientation: Person, Unable to Assess Attachments: Oxygen, Drains, IV Transfers Functional [place] Measure 0=Not Assessed/NA 4=Minimal Assistance 1=Total Assistance 5=Supervision or Setup 2=Maximal Assistance 6=Modified [place] 3=Moderate Assistance 7=Complete IndependenceIRFPAI Quality Coding Scale 6 Independent with activity with or without an assistive device 5 Patient requires set up or clean up by helper. Patient completes activity by themselves 4 Supervision or touching assist (CGA). [place] provide cues , steadying assist 3 The helper provides less than half the effort to complete the activity 2 The helper provides more than half the effort to complete the activity 1 Dependent. The helper does all the effort to complete an activity 7 Patient refused to complete or attempt activity 9 The patient did not perform the activity before the current illness or injury 88 Not attempted due to Medical conditions or safety concerns Transfers not completed by PT, observed upon arrival transferring from [facility] to recliner with assistance of 2. Weight Bearing Weight Bearing Restriction: Full Weight Bearing Location Restriction: LE Bilateral Exercises Seated Therapy Exercises: Ankle pumps, Long arc quads, Hip flexion, Kicking activity Seated Reps: 20 Treatments Pt transferring with nursing staff (2) from [facility] to recliner. Pt completes seated EX in recliner before RT arrives for breathing treatments. Pt's son & daughter in law asked about what ARU stay would involve. Pt advised pt needs to be Acute enough to be in hospital but well enough to be able to participate in 3 hrs of Therapy a day. Pt is left with RT for breathing txs and all needs met at end of PT. Assessment Current Status: Good Progress Per nursing, pt is transferring/mobility noticeably better than yesterday. Pt able to complete EX as AROM and family reports that pt pt could lift legs like this before surgery. Pt does get a little SOB during tx. PT Straw Baler Goals Penitentiary Goals PT Penitentiary Goals Time Frame: Jul 08, 2016 Transfers (B,C,W/C) (FIM): 2 PT Plan Problem List Problem List: Activity Tolerance, Functional Strength, Safety, Balance, Gait, Transfer Treatment/Plan Treatment Plan: Continue Plan of Care Treatment Plan: Bed Mobility, Education, Functional Activity Michael, Functional Strength, Gait, Safety, Therapeutic Exercise, Transfers Treatment Duration: Jul 08, 2016 Visits Per Week: 10-11 Safety Risks/Education Patient Education: Transfer Techniques, Correct Positioning, Safety Issues Teaching Recipient: Patient, Family Teaching Methods: Discussion Response to Teaching: Verbalize Understanding Time/GCodes Time In: 1000 Time Out: 1015 Total Billed Treatment Time: 15 Total Billed Treatment visit, EX (15m) ADAM PRESTON POLITICAL GEOGRAPHER Jun 25, 2016 11:37
[2016-06-25 12:00] VITALS: BP 132/66
[2016-06-25] MEDS: inSUlin ASPART (NovoLOG) 1 UNIT/0.01 ML (CHARGE PER UNIT) SC SCH ×3 (12:19→20:54)
[2016-06-25] MEDS: KCL 20 MEQ TAB (K-DUR) PO SCH ×2 (12:19→20:54)
--- NOTE | 2016-06-25 14:37 | Physical Therapy Daily Note ---
PT Daily Note-Current Subjective Pt supine propped with pillows on L side upon arrival. PT reports feeling lop- sided in bed and asked if PT could adjust her pillows. Pain Comment: Pt reported uncomfortable in bed but no pain rating given. Mental Status Patient Orientation: Person, Unable to Assess Attachments: Oxygen, Drains, IV Transfers Functional [place] Measure 0=Not Assessed/NA 4=Minimal Assistance 1=Total Assistance 5=Supervision or Setup 2=Maximal Assistance 6=Modified [place] 3=Moderate Assistance 7=Complete IndependenceIRFPAI Quality Coding Scale 6 Independent with activity with or without an assistive device 5 Patient requires set up or clean up by helper. Patient completes activity by themselves 4 Supervision or touching assist (CGA). [place] provide cues , steadying assist 3 The helper provides less than half the effort to complete the activity 2 The helper provides more than half the effort to complete the activity 1 Dependent. The helper does all the effort to complete an activity 7 Patient refused to complete or attempt activity 9 The patient did not perform the activity before the current illness or injury 88 Not attempted due to Medical conditions or safety concerns Transfers (B, C, W/C) (FIM): 3 Rollin Exercises Supine Ex: Rolling Treatments Pt c/o uncomfortable in bed and asked for repositioning from PT. Pt rolled to R side to reposition rolled pillow further under L side as well as pillow vertical under L calf so she wouldn't feel so lop-sided. Pt for new pillow under L calf due to pillow being to big & bulky. After returning with new pillow, pt felt the one under her head was smaller and was exchanged for one under L calf. Pt reports feeling better. Pt was left with all needs met at end of tx. Assessment Current Status: Fair Progress Pt continues to be tearful during tx but is motivated to return home. PT Loom Mechanic Goals Loom Mechanic Goals PT Loom Mechanic Goals Time Frame: Jul 08, 2016 Transfers (B,C,W/C) (FIM): 2 PT Plan Problem List Problem List: Activity Tolerance, Functional Strength, Safety, Balance, Gait, Transfer, Bed Mobility Treatment/Plan Treatment Plan: Continue Plan of Care Treatment Plan: Bed Mobility, Education, Functional Activity Michael, Functional Strength, Gait, Safety, Therapeutic Exercise, Transfers Treatment Duration: Jul 08, 2016 Visits Per Week: 10-11 Safety Risks/Education Patient Education: Gait Training, Transfer Techniques, Correct Positioning, Safety Issues Teaching Recipient: Patient, Family Teaching Methods: Discussion Response to Teaching: Verbalize Understanding Time/GCodes Time In: 1325 Time Out: 1340 Total Billed Treatment Time: 15 Total Billed Treatment visit, FA (15m) ADAM PRESTON PTA Jun 25, 2016 14:37
[2016-06-25 16:00] VITALS: BP 163/72
[2016-06-25] MEDS: CYCLOBENZAPRINE 10 MG (FLEXERIL) TAB PO PRN (16:46)
[2016-06-25] MEDS: AMITRIPTYLINE 50 MG (ELAVIL) TAB PO SCH (20:25)
[2016-06-25] MEDS: morphine IMMEDIATE RELEASE 15 MG TABLET PO PRN (20:31)
[2016-06-26] VITALS: BP 128/78
[2016-06-26] MEDS: oxyCODONE/APAP 5/325MG (PERCOCET 5) TABLET PO PRN ×3 (03:04→13:07)
[2016-06-26] MEDS: morphine IMMEDIATE RELEASE 15 MG TABLET PO PRN (04:47)
[2016-06-26] MEDS: inSUlin ASPART (NovoLOG) 1 UNIT/0.01 ML (CHARGE PER UNIT) SC SCH ×2 (06:00→11:53)
[2016-06-26] MEDS: morphine ER 30 MG (MS CONTIN) TAB PO SCH (06:23)
[2016-06-26] MEDS: BETHANECHOL 25 MG (URECHOLINE) TAB PO SCH ×2 (06:27→11:49)
[2016-06-26] MEDS: MULTIVIT W/MINERALS TAB (THERAGRAN M) PO SCH (06:27)
[2016-06-26] MEDS: RT-ALBUTEROL/IPRATROPIUM 3 ML (DUONEB) VIAL INH SCH ×2 (07:00→14:21)
[2016-06-26 08:00] VITALS: BP 107/51
[2016-06-26] MEDS: KCL 20 MEQ TAB (K-DUR) PO SCH (09:21)
[2016-06-26] MEDS: amLODIPine 5 MG (NORVASC) TAB PO SCH (09:21)
[2016-06-26] MEDS: inSUlin NPH/REG (NovoLIN 70/30) CHARGE PER UNIT SQ SCH (09:21)
[2016-06-26] MEDS: BENZTROPINE MESYLATE 1 MG (COGENTIN) TAB PO SCH (09:21)
[2016-06-26] MEDS: buPROPion SR 150 MG (WELLBUTRIN SR) TAB PO SCH (09:21)
[2016-06-26] MEDS: CYCLOBENZAPRINE 10 MG (FLEXERIL) TAB PO SCH (09:21)
[2016-06-26] MEDS: SENNOSIDES 8.6 MG (SENOKOT) TAB PO SCH (09:22)
[2016-06-26] MEDS: ALPRAZolam 0.5 MG (XANAX) TAB PO SCH ×2 (09:22→13:07)
[2016-06-26] MEDS: DOCUSATE SODIUM 100 MG (COLACE) CAP PO SCH (09:22)
[2016-06-26] MEDS: FAMOTIDINE 20 MG (PEPCID) TABLET PO SCH (09:22)
--- NOTE | 2016-06-26 10:38 | Discharge Summary-Hospitalist ---
Diagnosis/Chief Complaint Date of Admission Jun 23, 2016 at 06:09 Date of Discharge Admission Diagnosis Assessment: S/p extensive lumbar spine surgery due to cauda equina syndrome acute Severe debility Situational depression severe Bipolar Hypokalemia HTN COPD Discharge Diagnosis Assessment: S/p extensive lumbar spine surgery due to cauda equina syndrome acute Severe debility Situational depression severe Bipolar Hypokalemia HTN COPD Plan: In-patient rehab eval SW will contact skilled facility in case pt declines in-pt rehab Replace potassium Maintain insulin for hyperglycemia Prognosis poor considering her severe debility and emotional labile state causing difficulty and motivation Reason Hospital Visit/Course CC: Medical management following extensive lumbar surgery due to cauda equina syndrome acute HPI: This is [id number] pt that was admitted on 06/23/16 following extensive lumbar spine surgery and kyphoplasty by Dr. Fernandes. Fairly extensive EBL of 1400 ccs but Hgb stable. She has hx of COPD, DM, Bipolar. Currently pt is becoming very depressed since came from [facility] in [place] and even refused PT yesterday. SW Review: SW discussed moving to in-pt rehab with pt, and pt was very hesitant. SW will contact previous skilled facility in order to prepare all possible options. Patient Interview: Pt has been receiving breathing treatments. Pt has been in a [facility]. Physical exam was stable. Pt states that she is having BMs. Pt has not yet urinated after catheter DC. Pt feels fatigued and stressed. Dr. Roth is PCP. Dr. Amado discusses in-patient rehab with pt and family. Pt is willing to attempt rehab. Scribed by Tobias Urrutia under the direct supervision of Dr. Amado. Notes from 06/26/2016: Chart Review: Max fever 99.9, Isolated reading Vitals stable Labs from yesterday normal Having BMs Patient Interview: Pt states that she had significant pain during the night. Dr. Amado discusses plans to move pt to [facility] today. Pt is happy about this plan. Dr. Amado encourages pt to relax and assures her that recovery will go well. Physical exam was stable. No fever, vital signs stable, supine in bed, family at the bedside, anxious and frightened Chronically ill, debilitated Regular rate and rhythm, clear to auscultation bilaterally No edema Plan: DC Skilled to [facility] Scribed by Tobias Urrutia under the direct supervision of Dr. Amado. Hospital course: Patient had a standard hospital course following extensive lumbar spine surgery with kyphoplasty due to cauda equina syndrome acute. She underwent an uncomplicated surgery by Dr. Fernandes. Bipolar and anxiety did flare during hospital stay making it unlikely she could manage inpatient rehabilitation criteria for exercise time required. She did come from [facility] at [place] that she had resided added 3 weeks before surgery due to the severity of her back pain while it was being worked up and MRIs obtained showing the issues that require the surgery. I initiated more bowel regimen which was successful at time of discharge and overall she was stable and deemed meeting criteria for skilled therapy to the completed at the [facility] under her primary care provider in [place]. Discharge Summary Discharge Physical Examination Allergies: Coded Allergies: niacin (Verified Allergy, Mild, RASH, 06/23/16) Vitals & I&Os Vital Signs Date Time Temp Pulse Resp B/P Pulse Ox O2 Delivery O2 Flow Rate FiO2 06/26/16 08:00 99.9 90 20 107/51 97 Room Air 0.00 Hospital Course Labs (last 24 hrs) Laboratory Tests 06/25/16 16:12: Glucometer 196H 06/25/16 20:50: Glucometer 249H 06/26/16 05:58: Glucometer 167H Microbiology 06/23/16 MRSA Screen - Final, Complete Pending Labs Laboratory Tests 06/26/16 05:58: Glucometer 167 Discharge Home Medications: Active Scripts Active Lactulose 20 Gm/30 Ml Solution 20 Gm PO BID 30 Days Acetaminophen 325 Mg Tablet 650 Mg PO Q4H PRN 30 Days Oxycodone-Acetaminophen 5-325 (Oxycodone HCl/Acetaminophen) 1 Each Tablet 1-2 Tab PO Q4H PRN Morphine Sulfate 15 Mg Tablet 7.5 Mg PO Q4H PRN TAKES 1/2 OF A (15 MG) TABLET Alprazolam 0.5 Mg Tablet 0.5 Mg PO TID Methylphenidate HCl 5 Mg Tablet 5 Mg PO BID Ms Contin (Morphine Sulfate) 30 Mg Tablet.er 30 Mg PO Q12H Reported Fleet Enema (Na Phos,M-B/Na Phos,Di-Ba) 133 Ml Enema 133 Ml RC DAILY PRN PRN Clotrimazole-Betamethasone Lot (Clotrimazole/Betamethasone Dip) 30 Ml Lotion TP TID APPLIED TO ABDOMINAL FOLD Lidoderm (Lidocaine) 700 Mg Adh..patch 2 Patch TP DAILY Thiothixene 2 Mg Capsule 4 Mg PO DAILY TAKES 2 (2 MG) TABLETS Bupropion Xl (Bupropion HCl) 150 Mg Tab.er.24h 300 Mg PO DAILY TAKES 2 (150 MG) TABLETS Amitriptyline HCl 25 Mg Tablet 50 Mg PO HS TAKES 2 (25 MG) TABLETS Ondansetron HCl 4 Mg Tablet 4 Mg PO Q6H PRN Bisacodyl 10 Mg Supp.rect 10 Mg RC DAILY PRN Proventil Hfa (Albuterol Sulfate) 6.7 Gm Hfa.aer.ad 2 Puff IH Q4H PRN Albuterol Sulfate 2.5 Mg/0.5 Ml Vial.neb 2.5 Mg IH Q6H PRN Milk of Magnesia (Magnesium Hydroxide) 400 Mg/5 Ml Oral.susp 30 Ml PO EVERY 4-6 HOURS PRN Bethanechol Chloride 25 Mg Tablet 25 Mg PO TID Movantik (Naloxegol Oxalate) 25 Mg Tablet 25 Mg PO DAILY PRN Topiramate ER (Topiramate) 50 Mg Cap.spr.24 50 Mg PO BID Primidone 250 Mg Tablet 500 Mg PO BID TAKES 2 (250 MG) TABLETS Omeprazole 20 Mg Capsule.dr 20 Mg PO DAILY Farxiga (Dapagliflozin Propanediol) 10 Mg Tablet 10 Mg PO DAILY Cyclobenzaprine HCl 10 Mg Tablet 10 Mg PO BID Benztropine Mesylate 1 Mg Tablet 1 Mg PO DAILY Aspir 81 (Aspirin) 81 Mg Tablet.dr 81 Mg PO DAILY Docusate Sodium 100 Mg Capsule 200 Mg PO DAILY TAKES 2 (100 MG) CAPSULES Ibuprofen 800 Mg Tablet 800 Mg PO TID PRN Amlodipine Besylate 5 Mg Tablet 5 Mg PO DAILY Victoza 2-Jamal (Liraglutide) 0.6 Mg/0.1 Ml Pen.injctr 1.2 Mg SQ DAILY Lantus Solostar (Insulin Glargine,Hum.rec.anlog) 100 Unit/1 Ml Insuln.pen 80 Unit SQ HS Humulin 70-30 Vial (Insulin NPH Hum/Reg Insulin Hm) 100 Unit/1 Ml Vial 40 Unit SQ DAILY Instructions to patient/family Please see electonic discharge instructions given to patient. Clinical Quality Measures DVT/VTE Risk/Contraindication: Risk Factor Score Per Nursin RFS Level Per Nursing on Admit: 4+=Very High BRITTNEE AMADO DO Jun 26, 2016 10:37
[2016-06-26] MEDS ORDERED: OXYC-471 PO (10:42)
[2016-06-26] MEDS ORDERED: ALPR0.5T7 PO (10:42)
[2016-06-26] MEDS ORDERED: MORP15TA PO (10:42)
[2016-06-26] MEDS ORDERED: LACT20SO2 PO (10:42)
[2016-06-26] MEDS ORDERED: ACET325T49 PO (10:42)
[2016-06-26] MEDS ORDERED: METH5TAB86 PO (10:42)
[2016-06-26] MEDS ORDERED: MORP30TA60 PO (10:42)
--- NOTE | 2016-06-26 10:44 | Discharge Inst-Skilled Nursing ---
Discharge Inst-Skilled NF Patient Instructions Patient Problems: Cauda equina syndrome Lumbar spine surgery Bipolar with anxiety DM Narcotic bowel Goal: Retunr to independent living Consult/Follow Up/Orders Follow Up Appt.: Dr Roth in 1 week Skilled NF Admit to: [facility] in [place], [place] Certification (SNF) I certify that SNF services are required to be given on an inpatient basis because of the above named patient's need for half-way care on a continuing basis for the conditions(s) for which he/she was receiving inpatient hospital services prior to his/her transfer to the SNF. Detention Facility Order: Nursing Services, Cleaner Greaser-Evaluate & Treat, Physical Therapy-Evaluate & Treat, Speech Language-Evaluate & Treat Discharge Diet: ADA Diet Daily Activity as Tolerated: Yes New & Resume Previous Orders Prisca Pollard Jun 26, 2016 10:43 PRISCA POLLARD DO Jun 26, 2016 10:44
[2016-06-26 12:00] VITALS: BP 143/75
[2016-06-26] MEDS: CYCLOBENZAPRINE 10 MG (FLEXERIL) TAB PO PRN (13:07)
[2016-06-26 16:40] VITALS: BP 143/75
== END 2016-06-26 16:49 | DRG 460 ==
LOC: 4TH 06:09 → SURG 06:10 → 4TH 11:40
PROVIDERS: ADMIT Orthopaedic Surgery; ATTEND Orthopaedic Surgery
PROC: 0SG0071 Fusion of Lumbar Vertebral Joint with Autologous Tissue Substitute, Posterior Approach, Posterior Column, Open Approach (ICD-10-PCS; 2016-06-23)
PROC: 0QS00ZZ Reposition Lumbar Vertebra, Open Approach (ICD-10-PCS; 2016-06-23)
PROC: 0QU00JZ Supplement Lumbar Vertebra with Synthetic Substitute, Open Approach (ICD-10-PCS; 2016-06-23)
PROC: 0SG00AJ Fusion of Lumbar Vertebral Joint with Interbody Fusion Device, Posterior Approach, Anterior Column, Open Approach (ICD-10-PCS; principal; 2016-06-23 07:37)
DX: S32.039A Unspecified fracture of third lumbar vertebra, initial encounter for closed fracture (principal); M48.06 Spinal stenosis, lumbar region; G83.4 Cauda equina syndrome; M99.33 Osseous stenosis of neural canal of lumbar region; M99.43 Connective tissue stenosis of neural canal of lumbar region; M99.53 Intervertebral disc stenosis of neural canal of lumbar region; Z68.41 Body mass index [BMI] 40.0-44.9, adult; F31.4 Bipolar disorder, current episode depressed, severe, without psychotic features; D62 Acute posthemorrhagic anemia; E66.01 Morbid (severe) obesity due to excess calories; S42.301D Unspecified fracture of shaft of humerus, right arm, subsequent encounter for fracture with routine healing; F41.9 Anxiety disorder, unspecified; E11.65 Type 2 diabetes mellitus with hyperglycemia; E11.40 Type 2 diabetes mellitus with diabetic neuropathy, unspecified; I10 Essential (primary) hypertension; J44.9 Chronic obstructive pulmonary disease, unspecified; J45.909 Unspecified asthma, uncomplicated; R53.81 Other malaise; E87.6 Hypokalemia; K59.09 Other constipation; Z79.4 Long term (current) use of insulin; Z87.891 Personal history of nicotine dependence; Z99.81 Dependence on supplemental oxygen; W19.XXXA Unspecified fall, initial encounter
CPT/HCPCS: 36415; 72100; 80053; 82962; 85014; 85018; 85025; 86850; 86900; 86901; 87081; 94640; 94664; 94760

== ENCOUNTER → 2017-06-22 | Outpatient (CLI) | payer MEDICARE, OTHER ==
[~2017-06-22] MED LIST changes: +ACET325T49 PO; +LACT20SO2 PO; +NA P133E22 RC; +OXYC-471 PO; +RT-ALBUTEROL SULF 2.5 MG/3 ML PRE-MIX VIAL INH ONE; +RT-ALBUTEROL SULF 2.5 MG/3 ML PRE-MIX VIAL ONE
--- NOTE | 2017-06-22 15:08 | Diagnostic Imaging Report ---
INDICATION: Asthma. TIME OF EXAM: 3:18 PM COMPARISON: No prior studies are available for comparison. FINDINGS: The heart size is normal. The lungs are clear. The pulmonary vascularity is normal. No effusion or pneumothorax is seen. Old fracture deformity of the right proximal humerus is noted. IMPRESSION: No acute cardiopulmonary process is detected. Dictated by: Dictated on workstation # [id number]
== END ==
LOC: RT 12:39
PROVIDERS: ATTEND Nurse Practitioner Family
DX: J45.909 Unspecified asthma, uncomplicated (principal); R05 Cough; J44.9 Chronic obstructive pulmonary disease, unspecified
CPT/HCPCS: 71046; 94060; 94726; 94729